=== PATIENT | female | born 1960 | race Caucasian/White ===

== ENCOUNTER 2019-02-15 07:02 | Emergency (ER) | payer MEDICARE ==
[~2019-02-15] VITALS: Ht 172.7 cm; Wt 122.7 kg
[~2019-02-15 07:02] MED LIST: ASPIRIN81 MG PO; ZESTRIL20 MG PO
[2019-02-15 07:07] VITALS: Ht 172.7 cm; Wt 122.7 kg
[2019-02-15] MEDS ORDERED: ASPIRIN325 MG PO (07:09)
[2019-02-15] MEDS ORDERED: LISINOPRIL40 MG PO (07:10)
[2019-02-15] MEDS ORDERED: XIGDUO XR 5 MG1 EACH PO (07:10)
[2019-02-15 07:29] LABS: BASOPHILS 0.3 % (0-2); EOSINOPHILS 2.9 % (0-7); HEMATOCRIT 48.4 % (36.0-48.0); HEMOGLOBIN 16.1 g/dL (12-16); IMMATURE GRANULOCYTES 0.4 % (0-5); LYMPHOCYTES 26.5 % (15-50); MCH 31.7 pg (26.0-34.0); MCHC 33.3 g/dL (31.0-37.0); MCV 95.3 fL (80.0-100.0); MEAN PLATELET VOLUME 10.8 fL (7.4-10.4); MONOCYTES 8.2 % (2-11); NEUTROPHILS 61.7 % (40-80); PLATELET COUNT 165 10x3/uL (130-400); RBC 5.08 10x6/uL (4.00-5.40); RDW 12.8 % (11.5-14.5); WBC 6.9 10x3/uL (4.8-10.8)
[2019-02-15 07:42] LABS: CALC OSMOLALITY 280 mosm/kg (275-300); CALCIUM 8.7 mg/dL (8.5-10.1); CHLORIDE - SERUM 107 mmol/L (98-107); CREATININE - SERUM 0.8 mg/dL (0.6-1.3); GLUCOSE 121 mg/dL (74-106); POTASSIUM - SERUM 4.1 mmol/L (3.5-5.1); SODIUM 140 mmol/L (136-145); UREA NITROGEN 14 mg/dL (7-18); eGFR NON AFRICAN AMERICAN 78 mL/min (90-120)
[2019-02-15 07:58] LABS: ALBUMIN 3.3 g/dL (3.4-5.0); ALKALINE PHOSPHATASE 122 U/L (46-116); ALT (SGPT) 45 U/L (10-68); CKMB 4.7 U/L (0.0-3.6); CREATINE KINASE 192 UL (21-215); MAGNESIUM - SERUM 2.1 mg/dL (1.8-2.4); PROTEIN - SERUM 7.8 g/dL (6.4-8.2); TROPONIN-I < 0.017 ng/mL (0.000-0.060)
[2019-02-15 07:58] LABS: APPEARANCE CLEAR (CLEAR); BILIRUBIN NEGATIVE (NEGATIVE); COLOR YELLOW (YELLOW); GLUCOSE 1000 mg/dL (NEGATIVE); KETONE NEGATIVE (NEGATIVE); NITRITE NEGATIVE (NEGATIVE); PROTEIN NEGATIVE (NEGATIVE); UROBILINOGEN NORMAL (NORMAL)
[2019-02-15 08:00] LABS: APTT 32.6 SECONDS (22.8-39.4); INR 0.99 (0.85-1.17); PROTIME 12.6 SECONDS (11.6-15.0)
[2019-02-15 11:57] LABS: CKMB 4.3 U/L (0.0-3.6); CREATINE KINASE 188 UL (21-215)
[2019-02-15 11:59] LABS: TROPONIN-I < 0.017 ng/mL (0.000-0.060)
[2019-02-15] MEDS ORDERED: PROTONIX40 MG PO (12:13)
[2019-02-15 12:56] VITALS: BP 176/79
== END 2019-02-15 13:08 | disposition home or self-care (01) ==
LOC: D.ER 07:02
PROVIDERS: Family Medicine
DX: R07.9 Chest pain, unspecified (principal); I10 Essential (primary) hypertension

== ENCOUNTER 2019-12-13 10:00 | Outpatient (CLI) | payer MEDICARE ==
[2019-02-15 07:07] VITALS: BMI 41.1
[~2019-12-13 10:00] MED LIST changes: +ASPIRIN325 MG PO; +LISINOPRIL40 MG PO; +PROTONIX40 MG PO; +XIGDUO XR 5 MG1 EACH PO
== END 2019-12-13 10:01 | disposition home or self-care (01) ==
LOC: D.MAMMO 10:00
PROVIDERS: ATTEND Family Medicine
DX: Z12.31 Encounter for screening mammogram for malignant neoplasm of breast (principal)